=== PATIENT | female | born 1955 | race Two or more races ===

== ENCOUNTER → 2018-11-04 14:15 | Outpatient (CLI) | payer OTHER, SELFPAY ==
[2018-11-07 20:10] LABS: HPV Reflexed? NOT INDICATED
== END ==
PROVIDERS: Visit Provider Obstetrics & Gynecology
DX: Z12.4 Encounter for screening for malignant neoplasm of cervix (principal)
CPT/HCPCS: 88175; G0145

== ENCOUNTER → 2020-04-25 11:18 | Outpatient (CLI) | payer OTHER, SELFPAY ==
[2020-05-03 04:54] LABS: HPV APTIMA, High Risk Negative (Negative)
== END ==
PROVIDERS: Visit Provider Obstetrics & Gynecology
DX: Z12.4 Encounter for screening for malignant neoplasm of cervix (principal)
CPT/HCPCS: 87624; 88175; G0145

== ENCOUNTER → 2021-06-20 10:30 | Outpatient (CLI) | payer OTHER, SELFPAY ==
[2021-06-25 20:52] LABS: HPV APTIMA, High Risk Negative (Negative)
== END ==
PROVIDERS: Visit Provider Obstetrics & Gynecology
DX: Z12.4 Encounter for screening for malignant neoplasm of cervix (principal)
CPT/HCPCS: 87624; 88175; G0145